=== PATIENT | female | born 1955 | race Caucasian/White ===

== ENCOUNTER 2021-03-08 05:35 | Inpatient (IN) ==
[2021-03-07 12:32] LABS: PT Patient Result 11.2 SECS (10.5-12.0); Partial Thromboplastin Time 27.4 SECS (23.8-32.1)
[2021-03-08] MEDS ORDERED: fentaNYL 100 MCG/2 ML VIAL ONE (05:59)
[2021-03-08] MEDS ORDERED: propofoL 200 MG/20 ML VIAL IV ONE (05:59)
[2021-03-08] MEDS ORDERED: MIDAZOLAM 2 MG/2 ML VIAL ONE ×2 (05:59→07:34)
[2021-03-08] MEDS ORDERED: LIDOCAINE 2% 5 ML VIAL ONE (05:59)
[2021-03-08] MEDS ORDERED: GABAPENTIN 400 MG CAPSULE PO ONE (06:27)
[2021-03-08] MEDS ORDERED: FAMOTIDINE 20 MG TABLET PO ONE (06:27)
[2021-03-08] MEDS ORDERED: ACETAMINOPHEN 500 MG TABLET PO ONE (06:27)
[2021-03-08] MEDS ORDERED: ROPIVACAINE 0.5% 30 ML VIAL ONE (06:30)
[2021-03-08] MEDS ORDERED: LIDOCAINE 1% 5 ML VIAL ONE (06:30)
[2021-03-08] MEDS ORDERED: DEXAMETHASONE 4 MG/1 ML VIAL ONE (06:30)
[2021-03-08] MEDS ORDERED: BUPIVACAINE SPINAL 0.75% 2 ML AMP SPINAL ONE (06:38)
[2021-03-08] MEDS ORDERED: VANCOMYCIN INJ 1,000 MG in SODIUM CHLORIDE 0.9% 250 ML IV ONE (07:00)
[2021-03-08] MEDS ORDERED: LACTATED RINGERS 1,000 ML IV SCH (07:00)
[2021-03-08] MEDS ORDERED: BISACODYL 10 MG SUPP RECTAL PRN (07:22)
[2021-03-08] MEDS ORDERED: diphenhydrAMINE CAP 25 MG CAPSULE PO PRN (07:22)
[2021-03-08] MEDS ORDERED: TEMAZEPAM 7.5 MG CAPSULE PO PRN (07:22)
[2021-03-08] MEDS ORDERED: MAGNESIUM HYDROXIDE SUSP 30 ML UDCUP PO PRN (07:22)
[2021-03-08] MEDS ORDERED: LACTULOSE 20 GM/30 ML UDCUP PO PRN (07:22)
[2021-03-08] MEDS ORDERED: PROMETHAZINE 25 MG/1 ML VIAL IM PRN (07:22)
[2021-03-08] MEDS ORDERED: ONDANSETRON 4 MG/2 ML VIAL IV PRN ×2 (07:22→09:49)
[2021-03-08] MEDS ORDERED: traMADol 50 MG TABLET PO PRN (07:24)
[2021-03-08] MEDS ORDERED: SODIUM CHLORIDE 0.9% 250 ML IV ONE (07:55)
[2021-03-08] MEDS ORDERED: SODIUM CHLORIDE 0.9% 100 ML IV ONE (07:55)
[2021-03-08] MEDS ORDERED: TRANEXAMIC ACID 1,000 MG/10 ML VIAL ONE (07:55)
[2021-03-08] MEDS ORDERED: LACTATED RINGERS 1,000 ML IV ONE (07:55)
[2021-03-08] MEDS: HYDROmorphone 2 MG/1 ML VIAL IV PRN ×7 (09:55→22:49)
[2021-03-08] MEDS ORDERED: BACITRACIN OINT 0.9 GM PACK TOP ONE (12:32)
[2021-03-08] MEDS: PANTOPRAZOLE 40 MG TABLET PO SCH (14:11)
[2021-03-08] MEDS: ceFAZolin 2,000 MG/50 ML DUPLEX IV SCH ×2 (14:40→21:50)
[2021-03-08] MEDS: CETIRIZINE 10 MG TABLET PO SCH (14:40)
[2021-03-08] MEDS ORDERED: INFLUENZA VIRUS VACCINE 0.5 ML SYRINGE IM ONE (17:07)
[2021-03-08] MEDS: FONDAPARINUX 2.5 MG/0.5 ML SYRINGE SUBCUT SCH (21:50)
[2021-03-08] MEDS: [UNRECOGNIZED DRUG - OTHER] PO SCH (21:50)
[2021-03-08] MEDS: DOCUSATE SODIUM 100 MG CAPSULE PO SCH (21:50)
[2021-03-09 05:25] LABS: Basophils # 0.1 10*3/uL (0.0-0.2); Basophils % 0.7 % (0.0-0.8); Eosinophils % 0.3 % (0.00-10.9); Hemoglobin 11.3 GM/DL (12.0-16.0); Immature Granulocytes % 0.5 %; Immature Granulocytes Absolute 0.05 #; Lymphocytes # 1.2 10*3/uL (1.4-4.0); Mean Corpuscular HGB Conc 32.3 GM/DL (32-36); Mean Corpuscular Volume 91.9 FL (87-102); Mean Platelet Volume 9.6 FL (9.6-12.0); Monocytes % 9.1 % (1.7-12.7); Neutrophils % 77.4 % (38.7-73.9); Platelet Count 207 T/CUMM (130-400); Red Blood Count 3.81 MC/CUMM (3.8-5.5); White Blood Count 10.4 T/CUMM (4-12)
[2021-03-09] MEDS: HYDROmorphone 2 MG/1 ML VIAL IV PRN ×2 (05:42→12:12)
[2021-03-09 06:00] LABS: Calcium 8.2 MG/DL (8.5-10.1); Osmolality,Calculated 269.1 MOS/KG (273-304); Potassium 3.5 MMOL/L (3.5-5.1)
[2021-03-09] MEDS ORDERED: oxyCODONE/ACETAMINOPHEN 5-325 MG TABLET PO PRN (08:07)
[2021-03-09] MEDS: PANTOPRAZOLE 40 MG TABLET PO SCH (08:41)
[2021-03-09] MEDS: GLUCOSAMINE 500 MG TABLET PO SCH (08:41)
[2021-03-09] MEDS: CETIRIZINE 10 MG TABLET PO SCH (08:41)
[2021-03-09] MEDS: DOCUSATE SODIUM 100 MG CAPSULE PO SCH ×2 (08:41→21:12)
[2021-03-09] MEDS: oxyCODONE/ACETAMINOPHEN 5-325 MG TABLET PO PRN ×3 (08:42→21:48)
[2021-03-09] MEDS: FLUTICASONE 50 MCG NASAL SPRAY 16 GM BOTTLE BOTH NARES SCH (10:33)
[2021-03-09] MEDS: FONDAPARINUX 2.5 MG/0.5 ML SYRINGE SUBCUT SCH (21:12)
[2021-03-09] MEDS: [UNRECOGNIZED DRUG - OTHER] PO SCH (21:13)
[2021-03-10] MEDS: oxyCODONE/ACETAMINOPHEN 5-325 MG TABLET PO PRN ×2 (04:30→09:06)
[2021-03-10 07:09] LABS: Basophils # 0.1 10*3/uL (0.0-0.2); Basophils % 0.6 % (0.0-0.8); Eosinophils # 0.2 10*3/uL (0.0-0.87); Eosinophils % 2.3 % (0.00-10.9); Hematocrit 35.1 VOL% (35.7-47.0); Hemoglobin 11.3 GM/DL (12.0-16.0); Immature Granulocytes % 0.5 %; Immature Granulocytes Absolute 0.04 #; Lymphocytes # 1.3 10*3/uL (1.4-4.0); Lymphocytes % 15.7 % (21.3-54.2); Mean Corpuscular HGB Conc 32.2 GM/DL (32-36); Mean Platelet Volume 9.4 FL (9.6-12.0); Monocytes % 9.4 % (1.7-12.7); Neutrophils % 71.5 % (38.7-73.9); Platelet Count 247 T/CUMM (130-400); Red Cell Distribution Width 13.2 % (9.3-17.3)
[2021-03-10 07:25] LABS: Calcium 8.7 MG/DL (8.5-10.1); Potassium 3.1 MMOL/L (3.5-5.1)
[2021-03-10] MEDS ORDERED: POTASSIUM CHLORIDE 10 MEQ TABLET PO SCH (09:00)
[2021-03-10] MEDS ORDERED: ESTRADIOL 0.1 MG/24 HR TRANSDERM SCH (09:00)
[2021-03-10] MEDS: PANTOPRAZOLE 40 MG TABLET PO SCH (09:06)
[2021-03-10] MEDS: GLUCOSAMINE 500 MG TABLET PO SCH (09:06)
[2021-03-10] MEDS: DOCUSATE SODIUM 100 MG CAPSULE PO SCH (09:06)
[2021-03-10] MEDS: FLUTICASONE 50 MCG NASAL SPRAY 16 GM BOTTLE BOTH NARES SCH (09:11)
[2021-03-10] MEDS: CETIRIZINE 10 MG TABLET PO SCH (10:26)
[2021-03-10 16:14] VITALS: BP 110/43
== END 2021-03-10 16:10 | disposition swing bed (61) | DRG 470 ==
LOC: N.OR 05:35 → N.SDSINP 05:36 → N.3E 10:32
PROVIDERS: ADMIT Orthopaedic Surgery; ATTEND Orthopaedic Surgery

== ENCOUNTER 2021-06-24 05:26 | Inpatient (IN) ==
[2021-06-24] MEDS ORDERED: BUPIVACAINE MPF 0.5% 30 ML VIAL ONE (06:27)
[2021-06-24] MEDS ORDERED: ONDANSETRON 4 MG/2 ML VIAL ONE ×2 (06:27→08:12)
[2021-06-24] MEDS ORDERED: buprenorphine HCL 0.3 MG/ML VIAL ONE (06:27)
[2021-06-24] MEDS ORDERED: DEXMEDETOMIDINE 200 MCG/2 ML VIAL ONE (06:27)
[2021-06-24] MEDS ORDERED: MIDAZOLAM 2 MG/2 ML VIAL ONE ×2 (06:27→07:28)
[2021-06-24] MEDS ORDERED: TRANEXAMIC ACID 1,000 MG/10 ML VIAL ONE (06:28)
[2021-06-24] MEDS ORDERED: VANCOMYCIN INJ 1,000 MG in SODIUM CHLORIDE 0.9% 250 ML IV ONE (06:30)
[2021-06-24] MEDS ORDERED: DEXAMETHASONE 4 MG/1 ML VIAL ONE (06:55)
[2021-06-24] MEDS ORDERED: LIDOCAINE 1% 5 ML VIAL ONE (06:55)
[2021-06-24] MEDS ORDERED: PROMETHAZINE 25 MG/1 ML VIAL IM PRN (07:03)
[2021-06-24] MEDS ORDERED: diphenhydrAMINE CAP 25 MG CAPSULE PO PRN (07:03)
[2021-06-24] MEDS ORDERED: TEMAZEPAM 7.5 MG CAPSULE PO PRN (07:03)
[2021-06-24] MEDS ORDERED: ONDANSETRON 4 MG/2 ML VIAL IV PRN (07:03)
[2021-06-24] MEDS ORDERED: BISACODYL 10 MG SUPP RECTAL PRN (07:03)
[2021-06-24] MEDS ORDERED: MAGNESIUM HYDROXIDE SUSP 30 ML UDCUP PO PRN (07:03)
[2021-06-24] MEDS ORDERED: HYDROmorphone 1 MG/1 ML SYRINGE IV PRN (07:03)
[2021-06-24] MEDS ORDERED: LACTULOSE 20 GM/30 ML UDCUP PO PRN (07:03)
[2021-06-24] MEDS ORDERED: CETIRIZINE 10 MG TABLET PO PRN (07:06)
[2021-06-24] MEDS ORDERED: METHOCARBAMOL 750 MG TABLET PO PRN (07:06)
[2021-06-24] MEDS ORDERED: PROMETHAZINE 25 MG TABLET PO PRN (07:06)
[2021-06-24] MEDS ORDERED: IBUPROFEN 200 MG TABLET PO PRN (07:06)
[2021-06-24] MEDS ORDERED: ALBUTEROL 2.5 MG/3 ML NEB RESP TX PRN ×2 (07:06→17:30)
[2021-06-24] MEDS ORDERED: NON-FORMULARY MEDICATION (Glucos Sul 2kcl-Msm-Chond-C-Mn [Glucosamine Chondroitin] 550-30- PO PRN (07:06)
[2021-06-24] MEDS ORDERED: LACTATED RINGERS 1,000 ML IV SCH ×2 (07:30)
[2021-06-24] MEDS ORDERED: PHENYLEPHRINE 1 MG/10 ML SYRINGE IV ONE ×2 (08:11→08:40)
[2021-06-24] MEDS ORDERED: ETOMIDATE 40 MG/20 ML VIAL IV ONE (08:12)
[2021-06-24] MEDS ORDERED: SEVOFLURANE 1 UNIT/15 MINUTE INH ONE ×2 (08:12→09:03)
[2021-06-24] MEDS ORDERED: DOCUSATE SODIUM 100 MG CAPSULE PO SCH (09:00)
[2021-06-24] MEDS: DOCUSATE SODIUM 100 MG CAPSULE PO SCH ×2 (10:30→21:07)
[2021-06-24] MEDS: SIMETHICONE CHEW 80 MG TABLET PO SCH (10:31)
[2021-06-24] MEDS: PANTOPRAZOLE 40 MG TABLET PO SCH (10:31)
[2021-06-24] MEDS: ESTRADIOL 0.1 MG/24 HR TOP SCH (10:52)
[2021-06-24] MEDS: ceFAZolin 2,000 MG/50 ML DUPLEX IV SCH ×2 (13:55→21:07)
[2021-06-24] MEDS: FONDAPARINUX 2.5 MG/0.5 ML SYRINGE SUBCUT SCH (21:07)
[2021-06-25 05:23] LABS: Basophils # 0.1 10*3/uL (0.0-0.2); Basophils % 1.1 % (0.0-0.8); Eosinophils % 0.1 % (0.00-10.9); Hematocrit 37.1 VOL% (35.7-47.0); Hemoglobin 12.3 GM/DL (12.0-16.0); Immature Granulocytes % 0.5 %; Immature Granulocytes Absolute 0.04 #; Lymphocytes # 1.3 10*3/uL (1.4-4.0); Lymphocytes % 17.8 % (21.3-54.2); Mean Corpuscular HGB Conc 33.2 GM/DL (32-36); Mean Corpuscular Volume 90.5 FL (87-102); Mean Platelet Volume 9.7 FL (9.6-12.0); Monocytes # 0.8 10*3/uL (0.11-0.8); Monocytes % 11.1 % (1.7-12.7); Neutrophils % 69.4 % (38.7-73.9); Platelet Count 224 T/CUMM (130-400); Red Cell Distribution Width 12.8 % (9.3-17.3); White Blood Count 7.3 T/CUMM (4-12)
[2021-06-25 05:45] LABS: Platelet Estimate Normal
[2021-06-25 06:18] LABS: Calcium 9.1 MG/DL (8.5-10.1); Osmolality,Calculated 266.2 MOS/KG (273-304); Potassium 3.5 MMOL/L (3.5-5.1)
[2021-06-25] MEDS: SIMETHICONE CHEW 80 MG TABLET PO SCH (08:11)
[2021-06-25] MEDS: DOCUSATE SODIUM 100 MG CAPSULE PO SCH ×2 (08:11→21:08)
[2021-06-25] MEDS: PANTOPRAZOLE 40 MG TABLET PO SCH (08:11)
[2021-06-25] MEDS: ESTRADIOL 0.1 MG/24 HR TOP SCH (09:05)
[2021-06-25] MEDS: FONDAPARINUX 2.5 MG/0.5 ML SYRINGE SUBCUT SCH (21:09)
[2021-06-26] MEDS: SIMETHICONE CHEW 80 MG TABLET PO SCH (09:03)
[2021-06-26] MEDS: PANTOPRAZOLE 40 MG TABLET PO SCH (09:03)
[2021-06-26] MEDS: DOCUSATE SODIUM 100 MG CAPSULE PO SCH ×2 (09:03→20:14)
[2021-06-26] MEDS: ESTRADIOL 0.1 MG/24 HR TOP SCH (09:04)
[2021-06-26] MEDS: FONDAPARINUX 2.5 MG/0.5 ML SYRINGE SUBCUT SCH (20:13)
[2021-06-27] MEDS ORDERED: HYDROmorphone 1 MG/1 ML SYRINGE IV PRN ×2 (06:04→06:30)
[2021-06-27] MEDS: SIMETHICONE CHEW 80 MG TABLET PO SCH (09:12)
[2021-06-27] MEDS: PANTOPRAZOLE 40 MG TABLET PO SCH (09:12)
[2021-06-27] MEDS: DOCUSATE SODIUM 100 MG CAPSULE PO SCH (09:12)
[2021-06-27] MEDS: ESTRADIOL 0.1 MG/24 HR TOP SCH (09:33)
[2021-06-27] MEDS ORDERED: POTASSIUM CHLORIDE 20 MEQ TABLET PO ONE (09:53)
[2021-06-27 12:05] VITALS: BP 112/67
== END 2021-06-27 13:05 | disposition swing bed (61) | DRG 470 ==
LOC: N.OR 05:26 → N.SDSINP 05:29 → N.3E 09:52
PROVIDERS: ADMIT Orthopaedic Surgery; ATTEND Orthopaedic Surgery